=== PATIENT | male | born 1950 | race Native Hawaiian/Other Pacific Islander ===

== ENCOUNTER 2016-05-11 08:40 | Outpatient (CLI) | payer OTHER, BC | END 2016-05-11 19:08 | disposition home or self-care (01) | LOC: RESP 08:40 | DX: I25.10 Atherosclerotic heart disease of native coronary artery without angina pectoris (principal) | CPT/HCPCS: 94640; 94664 ==

== ENCOUNTER 2016-07-29 09:14 | Outpatient (CLI) | payer OTHER ==
[2016-07-29 09:46] LABS: PLATELET COUNT 208 K/uL (142-355)
[2016-07-29 10:12] LABS: POTASSIUM 4.4 mmol/L (3.6-5.2); SODIUM 129 mmol/L (136-145)
== END 2016-07-29 19:46 | disposition home or self-care (01) ==
LOC: LABW 09:14
PROVIDERS: Internal Medicine Cardiovascular Disease
DX: Z79.899 Other long term (current) drug therapy (principal); E78.4 Other hyperlipidemia; R06.09 Other forms of dyspnea; Z51.81 Encounter for therapeutic drug level monitoring
CPT/HCPCS: 36415; 80048; 80061; 80076; 83880; 85027

== ENCOUNTER 2016-09-01 11:18 | Outpatient (CLI) | payer OTHER ==
[2016-09-01 11:42] LABS: PLATELET COUNT 318 K/uL (142-355)
[2016-09-01 12:05] LABS: POTASSIUM 4.2 mmol/L (3.6-5.2); SODIUM 135 mmol/L (136-145)
== END 2016-09-01 19:14 | disposition home or self-care (01) ==
LOC: LABW 11:18
PROVIDERS: Internal Medicine Cardiovascular Disease
DX: I50.9 Heart failure, unspecified (principal); Z79.899 Other long term (current) drug therapy
CPT/HCPCS: 36415; 80048; 83880; 85027; 85651

== ENCOUNTER 2016-10-06 11:00 | Outpatient (CLI) | payer OTHER | END 2016-10-06 12:00 | disposition home or self-care (01) | LOC: LABW 11:00 | PROVIDERS: Internal Medicine Cardiovascular Disease | DX: E78.4 Other hyperlipidemia (principal) | CPT/HCPCS: 36415; 80061 ==

== ENCOUNTER 2017-06-17 09:32 | Outpatient (CLI) | payer OTHER | END 2017-06-17 19:38 | disposition home or self-care (01) | LOC: LABW 09:32 | DX: M10.071 Idiopathic gout, right ankle and foot (principal) | CPT/HCPCS: 36415; 84550 ==

== ENCOUNTER 2017-08-17 10:27 | Outpatient (CLI) | payer OTHER ==
[2017-08-17 10:48] LABS: POTASSIUM 4.4 mmol/L (3.6-5.2)
== END 2017-08-17 20:55 | disposition home or self-care (01) ==
LOC: LABW 10:27
PROVIDERS: Internal Medicine Cardiovascular Disease
DX: Z79.899 Other long term (current) drug therapy (principal); Z51.81 Encounter for therapeutic drug level monitoring; M10.071 Idiopathic gout, right ankle and foot; I50.9 Heart failure, unspecified
CPT/HCPCS: 36415; 80048; 83880; 84550

== ENCOUNTER 2017-09-27 12:50 | Outpatient (CLI) | payer OTHER | END 2017-09-27 19:49 | disposition home or self-care (01) | LOC: LABW 12:50 | DX: M10.072 Idiopathic gout, left ankle and foot (principal) | CPT/HCPCS: 36415; 84550 ==

== ENCOUNTER 2017-12-07 10:28 | Outpatient (CLI) | payer OTHER | END 2017-12-07 22:18 | disposition home or self-care (01) | LOC: LABW 10:28 | DX: M10.072 Idiopathic gout, left ankle and foot (principal) | CPT/HCPCS: 36415; 84550 ==

== ENCOUNTER 2018-03-13 11:16 | Outpatient (CLI) | payer OTHER | END 2018-03-13 22:53 | disposition home or self-care (01) | LOC: LABW 11:16 | DX: M10.071 Idiopathic gout, right ankle and foot (principal) | CPT/HCPCS: 36415; 84550 ==

== ENCOUNTER 2018-03-20 08:06 | Outpatient (CLI) | payer OTHER | END 2018-03-20 19:40 | disposition home or self-care (01) | LOC: US 08:06 | DX: R74.8 Abnormal levels of other serum enzymes (principal) ==

== ENCOUNTER 2018-04-04 07:35 | Day surgery (SDC) | payer OTHER ==
[~2018-04-04] VITALS: Ht 30.5 cm; Wt 0.5 kg
[2018-04-04 08:51] LABS: PLATELET COUNT 169 K/uL (142-355)
[2018-04-04 09:11] LABS: POTASSIUM 4.4 mmol/L (3.6-5.2)
== END 2018-04-04 11:02 | disposition home or self-care (01) ==
LOC: OR 07:35
PROVIDERS: Student in an Organized Health Care Education/Training Program
PROC: 0DB48ZZ Excision of Esophagogastric Junction, Via Natural or Artificial Opening Endoscopic (ICD-10-PCS; principal; 2018-04-04)
PROC: 0DB68ZZ Excision of Stomach, Via Natural or Artificial Opening Endoscopic (ICD-10-PCS; 2018-04-04)
DX: K29.50 Unspecified chronic gastritis without bleeding (principal); K25.9 Gastric ulcer, unspecified as acute or chronic, without hemorrhage or perforation; K44.9 Diaphragmatic hernia without obstruction or gangrene; R10.13 Epigastric pain; K21.9 Gastro-esophageal reflux disease without esophagitis; R63.5 Abnormal weight gain
CPT/HCPCS: 80053; 85027; J2001; J2250; J2405; J2704

== ENCOUNTER 2018-04-11 07:49 | Day surgery (SDC) | payer OTHER ==
[~2018-04-11] VITALS: Ht 30.5 cm; Wt 0.5 kg
== END 2018-04-11 10:45 | disposition home or self-care (01) ==
LOC: OR 07:49
PROC: 0DBK8ZZ Excision of Ascending Colon, Via Natural or Artificial Opening Endoscopic (ICD-10-PCS; principal; 2018-04-11)
DX: D12.2 Benign neoplasm of ascending colon (principal); K64.8 Other hemorrhoids; Z12.11 Encounter for screening for malignant neoplasm of colon
CPT/HCPCS: J2001; J2250; J2405; J2704

== ENCOUNTER 2018-10-19 09:14 | Outpatient (CLI) | payer OTHER ==
[2018-10-19 09:41] LABS: PLATELET COUNT 171 K/uL (142-355)
== END 2018-10-19 23:06 | disposition home or self-care (01) ==
LOC: LABW 09:14
PROVIDERS: Internal Medicine Cardiovascular Disease
DX: Z79.899 Other long term (current) drug therapy (principal)
CPT/HCPCS: 36415; 80053; 80061; 85027

== ENCOUNTER 2018-11-20 10:48 | Outpatient (CLI) | payer OTHER | END 2018-11-20 21:40 | disposition home or self-care (01) | LOC: LABW 10:48 | DX: M10.071 Idiopathic gout, right ankle and foot (principal); M10.072 Idiopathic gout, left ankle and foot | CPT/HCPCS: 84550; 85651 ==

== ENCOUNTER 2019-01-17 10:49 | Outpatient (CLI) | payer OTHER | END 2019-01-17 20:10 | disposition home or self-care (01) | LOC: LABW 10:49 | DX: Z79.899 Other long term (current) drug therapy (principal) | CPT/HCPCS: 36415; 86141 ==

== ENCOUNTER 2019-10-08 09:39 | Outpatient (CLI) | payer OTHER ==
[2019-10-08 09:54] LABS: PLATELET COUNT 142 K/uL (142-355)
[2019-10-08 10:05] LABS: POTASSIUM 4.1 mmol/L (3.6-5.2)
== END 2019-10-08 23:08 | disposition home or self-care (01) ==
LOC: LABW 09:39
PROVIDERS: Internal Medicine Cardiovascular Disease
DX: Z79.899 Other long term (current) drug therapy (principal)
CPT/HCPCS: 36415; 80053; 80061; 84550; 85027

== ENCOUNTER 2020-08-20 09:26 | Outpatient (CLI) | payer OTHER ==
[2020-08-20 10:04] LABS: PLATELET COUNT 122 K/uL (142-355)
== END 2020-08-20 21:18 | disposition home or self-care (01) ==
LOC: LAB 09:26
PROVIDERS: ATTEND Internal Medicine Cardiovascular Disease
DX: Z79.899 Other long term (current) drug therapy (principal)
CPT/HCPCS: 36415; 80053; 80061; 84153; 85027

== ENCOUNTER 2021-02-18 09:39 | Outpatient (CLI) | payer OTHER ==
[2021-02-18 10:04] LABS: PLATELET COUNT 115 K/uL (142-355)
[2021-02-18 10:17] LABS: POTASSIUM 4.1 mmol/L (3.6-5.2)
== END 2021-02-18 21:51 | disposition home or self-care (01) ==
LOC: LABW 09:39
PROVIDERS: ATTEND Internal Medicine Cardiovascular Disease
DX: Z79.899 Other long term (current) drug therapy (principal); R06.09 Other forms of dyspnea
CPT/HCPCS: 36415; 80053; 80061; 83880; 85027

== ENCOUNTER 2022-04-14 09:12 | Outpatient (CLI) | payer OTHER ==
[2022-04-14 09:40] LABS: PLATELET COUNT 114 K/uL (142-355)
[2022-04-14 09:46] LABS: POTASSIUM 4.5 mmol/L (3.6-5.2)
== END 2022-04-14 19:02 | disposition home or self-care (01) ==
LOC: LABW 09:12
PROVIDERS: ATTEND Internal Medicine Cardiovascular Disease
DX: Z79.899 Other long term (current) drug therapy (principal); I50.9 Heart failure, unspecified
CPT/HCPCS: 36415; 80053; 80061; 83880; 85027